=== PATIENT | female | born 1995 | race African-American/Black ===

== ENCOUNTER 2017-12-06 10:13 | Inpatient (IN) | payer SELFPAY ==
[~2017-12-06] VITALS: Ht 167.6 cm; Wt 70.6 kg
[2017-12-06] MEDS ORDERED: DIPHTH/TETANUS/ACEL PERTUSSIS (BOOSTER) 0.5 ML VIAL/PFS IM ONE (10:24)
[2017-12-06] MEDS ORDERED: ceFAZolin 2 GM PREMIX 50 ML ONE ×2 (10:24→14:24)
[2017-12-06] MEDS ORDERED: HYDROmorphone HCL PF 2 MG/ML VIAL ONE ×2 (10:25→15:01)
[2017-12-06] MEDS ORDERED: PROTAMINE SULFATE 50 MG/5 ML VIAL ONE (10:41)
[2017-12-06] MEDS ORDERED: HEPARIN SODIUM - IV 10,000 UNITS/10 ML VIAL ONE ×2 (10:41→10:43)
[2017-12-06 10:45] LABS: AUTOMATED NEUTROPHIL # 3.6 TH/MM3 (1.8-7.7); BASOPHIL % 0.5 % (0.0-2.0); EOSINOPHIL # 0.1 TH/MM3 (0-0.4); EOSINOPHIL % 0.8 % (0.0-4.0); HEMATOCRIT 30.5 % (35.0-46.0); HEMOGLOBIN 10.2 GM/DL (11.6-15.3); LYMPH % 36.1 % (9.0-44.0); LYMPHOCYTE # 2.4 TH/MM3 (1.0-4.8); MEAN CELL VOLUME 93.6 FL (80.0-100.0); MEAN CORPUSCULAR HEMOGLOBIN 31.5 PG (27.0-34.0); MEAN CORPUSCULAR HGB CONC 33.6 % (32.0-36.0); MEAN PLATELET VOLUME 8.5 FL (7.0-11.0); MONO % 8.2 % (0.0-8.0); MONOCYTE # 0.5 TH/MM3 (0-0.9); NEUT % 54.4 % (16.0-70.0); PLATELET COUNT 332 TH/MM3 (150-450); RED BLOOD COUNT 3.25 MIL/MM3 (4.00-5.30); RED CELL DISTRIBUTION WIDTH 12.9 % (11.6-17.2); WHITE BLOOD COUNT 6.6 TH/MM3 (4.0-11.0)
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
[2017-12-06 11:01] LABS: INTERNATIONAL NORMALIZED RATIO 1.1 RATIO; PROTHROMBIN TIME - PATIENT 11.4 SEC (9.8-11.6)
[2017-12-06] MEDS ORDERED: SUCCINYLCHOLINE CHLORIDE 100 MG/5 ML SYRINGE IV PUSH ONE (12:00)
[2017-12-06] MEDS ORDERED: DEXAMETHASONE SOD PHOS 4 MG/ML VIAL IV ONE (12:00)
[2017-12-06] MEDS ORDERED: ROCURONIUM INJ 50 MG/5 ML SYRINGE IV PUSH ONE (12:00)
[2017-12-06] MEDS ORDERED: PHENYLEPH/NS 1000 MCG/10 ML SYR IV ONE (12:00)
[2017-12-06] MEDS ORDERED: LIDOCAINE HCL 1% PF 5 ML SYRINGE OTHER ONE (12:00)
[2017-12-06] MEDS ORDERED: PROPOFOL 200 MG/20 ML AMP IV ONE (12:00)
[2017-12-06] MEDS ORDERED: ONDANSETRON HCL 4 MG/2 ML VIAL IV ONE (12:00)
[2017-12-06] MEDS ORDERED: PHENYLEPHRINE HCL 10 MG/ML VIAL IV ONE (12:00)
[2017-12-06] MEDS ORDERED: ePHEDrine/NS 25 MG/5 ML SYRINGE IV ONE (12:00)
[2017-12-06] MEDS ORDERED: ENALAPRILAT 1.25 MG/ML VIAL IV PUSH PRN (12:15)
[2017-12-06] MEDS ORDERED: MORPHINE SULFATE 2 MG/ML INJ IV PUSH PRN (12:15)
[2017-12-06] MEDS ORDERED: SODIUM CHLORIDE 0.9% FLUSH 10 ML FLUSH IV FLUSH PRN (12:15)
[2017-12-06] MEDS ORDERED: ACETAMINOPHEN/HYDROcodone 325 MG/5 MG TAB PO PRN (12:15)
[2017-12-06] MEDS ORDERED: ACETAMINOPHEN 325 MG TAB PO PRN (12:15)
[2017-12-06] MEDS ORDERED: ONDANSETRON HCL 4 MG/2 ML VIAL IV PUSH PRN (12:15)
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
[2017-12-06] MEDS ORDERED: BACITRACIN TOP OINT 15 GM TUBE ONE (15:54)
--- NOTE | 2017-12-06 17:08 | PD.OP ---
Operative Report Preoperative Diagnosis: (1) Laceration of right forearm with complication Postoperative Diagnosis: (1) Laceration of right median nerve (2) laceration flexor pronator mas right proximal forearm (3) Laceration of right forearm with complication Procedure: exploration repair median nerve right proximal forearm repair flexor pronator mass right proximal forearm repair laceration right proximal forearm Anesthesia: general Surgeon: Stephen Manley Django Developer(s): tomasa Operation and Findings: Right upper extremity: transverse laceration proximal volar forearm about 2 inches distal to elbow flexion crease measuring about 6-7 inches laceration of the flexor pronator mass proximal forearm complete laceration median nerve proximal forearm laceration of the radial and ulnar artery proximal forearm intact ulnar nerve Stephen Manley MD Dec 06, 2017 17:07
[2017-12-06] MEDS ORDERED: *morphine SULFATE 8 MG/ML PERIprocedure ONLY ONE (17:47)
[2017-12-06] MEDS ORDERED: SODIUM CHLOR 0.9% 1000 ML INJ 1,000 ML IV SCH (18:00)
[2017-12-06 20:00] VITALS: BP 113/83; PULSE 70; RESP 17; TEMP 96.9; O2SAT 98
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
[2017-12-06] MEDS: DOCUSATE SODIUM 50 MG/SENNA 8.6 MG TAB PO SCH (21:50)
[2017-12-06] MEDS: ACETAMINOPHEN/HYDROcodone 325 MG/5 MG TAB PO PRN (21:56)
[2017-12-06] MEDS: MORPHINE SULFATE 2 MG/ML INJ IV PUSH PRN (23:36)
[2017-12-07] VITALS (7 sets, daily range): BP systolic 113–125; BP diastolic 67–82; PULSE 73–92; RESP 17–18; TEMP 97–99.4; O2SAT 96–100
[2017-12-07] MEDS: ACETAMINOPHEN/HYDROcodone 325 MG/5 MG TAB PO PRN ×3 (01:40→10:53)
[2017-12-07] MEDS: DOCUSATE SODIUM 50 MG/SENNA 8.6 MG TAB PO SCH ×2 (07:44→22:13)
[2017-12-07] MEDS: GABAPENTIN 300 MG CAP PO SCH ×3 (07:44→17:49)
[2017-12-07] MEDS: MORPHINE SULFATE 2 MG/ML INJ IV PUSH PRN ×4 (07:45→22:12)
[2017-12-07 07:56] LABS: BASOPHIL % 0.1 % (0.0-2.0); EOSINOPHIL % 0.1 % (0.0-4.0); HEMATOCRIT 29.6 % (35.0-46.0); HEMOGLOBIN 10.4 GM/DL (11.6-15.3); LYMPH % 9.5 % (9.0-44.0); LYMPHOCYTE # 2.5 TH/MM3 (1.0-4.8); MEAN CELL VOLUME 85.2 FL (80.0-100.0); MEAN CORPUSCULAR HEMOGLOBIN 29.8 PG (27.0-34.0); MEAN PLATELET VOLUME 8.2 FL (7.0-11.0); MONO % 8.3 % (0.0-8.0); MONOCYTE # 2.2 TH/MM3 (0-0.9); PLATELET COUNT 150 TH/MM3 (150-450); RED BLOOD COUNT 3.48 MIL/MM3 (4.00-5.30); RED CELL DISTRIBUTION WIDTH 15.1 % (11.6-17.2); WHITE BLOOD COUNT 26.8 TH/MM3 (4.0-11.0)
--- NOTE | 2017-12-07 07:56 | MP ---
cc: BRETT PAIGE MD, SRIKANTH MD AKA: Alejandrina Reich DATE OF SURGERY 12/06/2017 PREOPERATIVE DIAGNOSIS Trauma to the right arm, transverse cut through the antecubital volar surface of the arm, transection of the vessels and nerves. POSTOPERATIVE DIAGNOSIS Transection of the brachial, ulnar and radial arteries, transection of the median nerve and all the muscle down to the bone as well as veins. OPERATIVE PROCEDURE 1. Exploration of the wound, repair of the brachial artery with brachial to ulnar artery interposition saphenous vein segment and cessation of bleeding. 2. Repair of brachial vein 3. The rest of the procedure by Dr. Manley which was repair of the median nerve. SURGEON MD Jenelle ANESTHESIA General. ESTIMATED BLOOD LOSS About 200 c. PROCEDURE The patient was prepped and draped in the usual fashion. The area was exposed. A tourniquet is placed on the upper arm to control the bleeding. It is estimated the patient probably lost about 4 units of blood in the field which is probably half of her blood volume. This was being replaced as we speak. The area is explored. The muscles are cut straight down transversely, would be unusual from a glass unless the patient slid over it. This extends down to the bone and interosseous membrane. The brachia artery is cut as it divides into ulnar and radial arteries and all this is bleeding. are retrieved very carefully. The radial artery is cut and the distal radial artery cannot even be located. Proximally it is very small. The brachial artery is intact higher up. The median nerve is cut and both ends are present which I left for Dr. Manley. The ulnar nerve is intact. There are numerous venous bleeds which are ligated with Liga clips and 2-0 Vicryls. Brachial vein is transected as well At this point the arteries are attended. The patient is given 5000 units of heparin and then the tourniquet was brought down. This results in brisk bleeding. As above noted radial artery is very small and is ligated proximally and small branches are ligated and then the distal ulnar artery is advanced slightly up and brachial artery is freed up and advanced somewhat down. Decision is now made to reconstruct brachial ulnar anastomosis with interposition saphenous vein graft. A segment of the saphenous vein is now taken from the groin in about 1-1/2 inch length to have a nice tension-free anastomosis and repair. This segment of the vein is dilated serially with dilators and then blown up with heparinized saline. Once the size is adequate, the #3 Deja is passed distally into the ulnar artery and then proximally. There is an excellent brisk flow from the top down and there is backbleeding from the bottom up. Yasargil clamps are applied distally and proximally without inflating the tourniquet and then anastomosis created first distally with running 6-0 Prolene and then proximally. Blood flow was reestablished and now the patient has a excellent pulse in the brachial and ulnar arteries, dopplerable as well and a strong signal in the ulnar artery distally by the wrist. In the radial artery there is no signal at this point. Brachial vein which is cut under oblique angle slightly higher is now advanced and repaired with several interrupted 6-0 Prolenes. Small bleeders are now cauterized and ligated with 2-0 Vicryl stick ties and then I marked the median nerve and at that point Dr. Manley took over to fix that. The patient tolerated my part of the procedure well. Because of the short period of ischemia, I did not think it was necessary to do the fasciotomy at this time; however, we will watch the patient carefully if things change she can always have a fasciotomy should she develop compartment syndrome. Brett ROGERS/TERRENCE /3:27 PM /7:29 AM JUSTIN
[2017-12-07 08:19] LABS: ALBUMIN 2.6 GM/DL (3.4-5.0); BICARBONATE 24.2 MEQ/L (21.0-32.0); CALCIUM 7.1 MG/DL (8.5-10.1); CALCIUM-PROTEIN CORRECTED 8.2 MG/DL (8.5-10.1); CREATININE 0.72 MG/DL (0.50-1.00); TOTAL BILIRUBIN ADULT 1.4 MG/DL (0.2-1.0)
[2017-12-07 08:47] LABS: BANDS 1 % (0-6); LYMPHOCYTES 13 % (9-44); MONOCYTES 4 % (0-8); NEUTROPHIL # MANUAL DIFF 22.2 TH/MM3 (1.8-7.7); POLYS (SEG NEUTROPHILS) 82 % (16-70)
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
[2017-12-07] MEDS: CLOPIDOGREL 75 MG TAB PO SCH (15:56)
[2017-12-07] MEDS: ACETAMINOPHEN/HYDROcodone 325 MG/10 MG TAB PO PRN ×2 (15:57→20:18)
[2017-12-07] MEDS: ENOXAPARIN SODIUM 40 MG/0.4 ML SYRINGE SQ SCH (15:57)
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
[2017-12-08] VITALS: BP 119/65; PULSE 80; RESP 17; TEMP 99.2; O2SAT 99
[2017-12-08] MEDS: ACETAMINOPHEN/HYDROcodone 325 MG/10 MG TAB PO PRN ×3 (01:04→10:53)
[2017-12-08] MEDS: MORPHINE SULFATE 2 MG/ML INJ IV PUSH PRN ×2 (03:13→08:38)
[2017-12-08 04:00] VITALS: BP 116/75; PULSE 79; RESP 17; TEMP 98.5; O2SAT 99
[2017-12-08 04:55] LABS: BASOPHIL % 0.1 % (0.0-2.0); EOSINOPHIL % 0.2 % (0.0-4.0); HEMATOCRIT 29.1 % (35.0-46.0); HEMOGLOBIN 9.8 GM/DL (11.6-15.3); LYMPHOCYTE # 3.7 TH/MM3 (1.0-4.8); MEAN CELL VOLUME 87.1 FL (80.0-100.0); MEAN CORPUSCULAR HEMOGLOBIN 29.5 PG (27.0-34.0); MEAN CORPUSCULAR HGB CONC 33.8 % (32.0-36.0); MEAN PLATELET VOLUME 8.5 FL (7.0-11.0); MONO % 7.8 % (0.0-8.0); MONOCYTE # 1.6 TH/MM3 (0-0.9); NEUT % 73.9 % (16.0-70.0); PLATELET COUNT 154 TH/MM3 (150-450); RED BLOOD COUNT 3.34 MIL/MM3 (4.00-5.30); RED CELL DISTRIBUTION WIDTH 14.9 % (11.6-17.2); WHITE BLOOD COUNT 20.3 TH/MM3 (4.0-11.0)
[2017-12-08 05:27] LABS: BICARBONATE 29.9 MEQ/L (21.0-32.0); CREATININE 0.64 MG/DL (0.50-1.00)
[2017-12-08 08:00] VITALS: BP 124/71; PULSE 73; RESP 18; TEMP 98.3; O2SAT 98
[2017-12-08] MEDS: DOCUSATE SODIUM 50 MG/SENNA 8.6 MG TAB PO SCH (08:37)
[2017-12-08] MEDS: CLOPIDOGREL 75 MG TAB PO SCH (08:37)
[2017-12-08] MEDS: GABAPENTIN 300 MG CAP PO SCH ×3 (08:37→17:04)
[2017-12-08] MEDS ORDERED: HYDR-3516 PO (11:21)
[2017-12-08] MEDS ORDERED: PLAV75TA29 PO (11:21)
[2017-12-08] MEDS ORDERED: PERI PO (11:21)
[2017-12-08 12:00] VITALS: BP 120/69; PULSE 92; RESP 18; TEMP 99.8; O2SAT 97
[2017-12-08] MEDS ORDERED: fentaNYL 50 MCG/HR PATCH T-DERMAL SCH (12:00)
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
[2017-12-08] MEDS: ACETAMINOPHEN/HYDROcodone 325 MG/5 MG TAB PO PRN (15:36)
[2017-12-08] MEDS: ENOXAPARIN SODIUM 40 MG/0.4 ML SYRINGE SQ SCH (17:05)
[2017-12-11] MEDS ORDERED: REMOVE OLD DURAGESIC (FENTANYL) PATCH T-DERMAL SCH (12:00)
== END 2017-12-08 17:18 | disposition home or self-care (01) | DRG 41 ==
LOC: NEPI 10:13 → NEDA 11:20 → EDBD 12:15 → OBSVTOIN 12:15 → N06B 18:42
PROVIDERS: ADMIT Surgery; ATTEND Surgery
PROC: 0LQ50ZZ Repair Right Lower Arm and Wrist Tendon, Open Approach (ICD-10-PCS; 2017-12-06)
PROC: 03L90ZZ Occlusion of Right Ulnar Artery, Open Approach (ICD-10-PCS; 2017-12-06)
PROC: 03Q90ZZ Repair Right Ulnar Artery, Open Approach (ICD-10-PCS; 2017-12-06)
PROC: 03R Upper Arteries, Replacement (ICD-10-PCS; 2017-12-06)
PROC: 06BP0ZZ Excision of Right Saphenous Vein, Open Approach (ICD-10-PCS; 2017-12-06)
PROC: 0HQDXZZ Repair Right Lower Arm Skin, External Approach (ICD-10-PCS; 2017-12-06)
PROC: 01Q50ZZ Repair Median Nerve, Open Approach (ICD-10-PCS; principal; 2017-12-06 10:44)
DX: S54.11XA Injury of median nerve at forearm level, right arm, initial encounter (principal); S55.011A Laceration of ulnar artery at forearm level, right arm, initial encounter; S45.111A Laceration of brachial artery, right side, initial encounter; S56.521A Laceration of other extensor muscle, fascia and tendon at forearm level, right arm, initial encounter; S51.811A Laceration without foreign body of right forearm, initial encounter; W25.XXXA Contact with sharp glass, initial encounter; Y93.9 Activity, unspecified
CPT/HCPCS: 36430; 76937; 80048; 80053; 82435; 82565; 82805; 82947; 84132; 84295; 84520; 85007; 85025; 85027; 85610; 85730; 86850; 86900; 86901; 86920; 90715; 94150; C1757; C9353; J0330; J0690; J1100; J1170; J1644; J1650; J2270; J2370; J2405; J2720; J3010; J7030; P9016